=== PATIENT | female | born 2000 | race Caucasian/White ===

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

== ENCOUNTER 2019-05-30 12:56 | Outpatient (CLI) | payer OTHER ==
[2019-05-30 14:01] LABS: APPEARANCE,URINE CLEAR; BILIRUBIN,URINE NEGATIVE (NEGATIVE); COLOR,URINE STRAW; GLUCOSE, URINE NEGATIVE (NEGATIVE); KETONES,URINE NEGATIVE (NEGATIVE); LEUKOCYTE ESTERASE,URINE NEGATIVE (NEGATIVE); NITRITE,URINE NEGATIVE (NEGATIVE); PROTEIN,URINE NEGATIVE (NEGATIVE); URINE SPECIFIC GRAVITY 1.005; UROBILINOGEN,URINE NEGATIVE mg/dL (<2.0)
[2019-05-30 14:21] LABS: UR PRO/CREAT RATIO RESULT 0.4 mg/mg (0.0-0.2); URINE CREATININE 32.6 mg/dL (16-327); URINE PROTEIN 14.2 mg/dL (<12)
[2019-05-30 14:24] LABS: ABSOLUTE EOSINOPHILS # (AUTO) 0.1 10^3/uL (0.0-0.6); ABSOLUTE LYMPHOCYTES (AUTO) 1.7 10^3/uL (0.5-4.7); ABSOLUTE MONOCYTES (AUTO) 0.7 10^3/uL (0.1-1.4); ABSOLUTE NEUT (AUTO) 5.9 10^3/uL (1.7-8.2); BASOPHILS % (AUTO) 0.1 % (0-2); EOSINOPHILS % (AUTO) 1.5 % (0-6); HEMOGLOBIN 11.6 g/dL (12.0-15.5); LYMPHOCYTES % (AUTO) 19.7 % (13-45); MEAN CORPUSCULAR HEMOGLOBIN 29.7 pg (27.0-33.4); MEAN CORPUSCULAR HGB CONC 34.2 g/dL (32.0-36.0); MEAN CORPUSCULAR VOLUME 87 fl (80-97); MONOCYTES % (AUTO) 8.8 % (3-13); PLATELET COUNT 283 10^3/uL (150-450); RED BLOOD COUNT 3.91 10^6/uL (3.72-5.28); RED CELL DISTRIBUTION WIDTH 14.1 % (11.5-14.0); SEGMENTED NEUTROPHILS % (AUTO) 69.9 % (42-78); TOTAL CELLS COUNTED % (AUTO) 100 %; WHITE BLOOD COUNT 8.4 10^3/uL (4.0-10.5)
[2019-05-30 14:32] LABS: URINE AMPHETAMINES SCREEN NEGATIVE; URINE BARBITURATES SCREEN NEGATIVE; URINE BENZODIAZEPINES SCREEN NEGATIVE; URINE COCAINE SCREEN NEGATIVE; URINE MARIJUANA (THC) SCREEN NEGATIVE; URINE METHADONE SCREEN NEGATIVE; URINE PHENCYCLIDINE SCREEN NEGATIVE
[2019-05-30 14:53] LABS: ALBUMIN 2.7 g/dL (3.7-5.6); ALKALINE PHOSPHATASE 136 U/L (50-135); ANION GAP 8 (5-19); ASPARTATE AMINO TRANSFERASE 22 U/L (5-30); BILIRUBIN,DIRECT 0.1 mg/dL (0.0-0.4); BILIRUBIN,TOTAL 0.3 mg/dL (0.2-1.3); BLOOD UREA NITROGEN 7 mg/dL (7-20); CARBON DIOXIDE 22 mmol/L (22-30); CHLORIDE 106 mmol/L (98-107); POTASSIUM 4.1 mmol/L (3.6-5.0); TOTAL PROTEIN 5.6 g/dL (6.3-8.2); URIC ACID 5.2 mg/dL (2.5-6.2)
[2019-05-30 14:55] LABS: GLUCOSE 68 mg/dL (75-110)
--- NOTE | 2019-05-30 17:13 | Progress Note ---
<CHAD MARTI - Last Filed: 05/30/19 17:07> Provider Note Provider Note: pt in for c/o one high BP at [facility] and turned in 24h urine there but the lab said they did not have the order. labs normal here except pr/cr 0.4. one mildly elevated BP here and pt asymptomatic. HILARIO Marti spoke with HILARIO Azevedo at [facility] and plan was made involving pt input and agreement for pt to go be seen in OB triage at [facility] and get her 24h urine results. pt discharged. <SHERRI FERNANDEZ - Last Filed: 05/30/19 18:59> Provider Note Provider Note: The BP of 143/69 was not communicated with me. If it had been with the patients presentation and P:C ratio increase from 0.2 to 0.4 the recommendations would have been to admit for observation and collect 24 hour UTP while continually observing her BP. The plan of discharging her to [facility] was also not d/w me. When I had been monitoring her with her normal BPs my turn over to the CN was that her BPs were normal (the 143/69 had not occurred at my turn over) and we were waiting on her Chem panel. If chem panel and BPs remained wnl then ok to discharge with 24 hour UTP to return here or to return at [facility] whichever the patient decided to pursue.
== END 2019-05-30 16:20 | disposition home or self-care (01) ==
LOC: LC 12:56
PROVIDERS: ATTEND Student in an Organized Health Care Education/Training Program
PROC: 4A1HXCZ Monitoring of Products of Conception, Cardiac Rate, External Approach (ICD-10-PCS; principal; 2019-05-30)
DX: O14.93 Unspecified pre-eclampsia, third trimester (principal); Z3A.37 37 weeks gestation of pregnancy
CPT/HCPCS: 36415; 80053; 80307; 81001; 82570; 83615; 84156; 84550; 85025